=== PATIENT | male | born 1950 | race Caucasian/White ===

== ENCOUNTER 2023-02-07 07:30 | Inpatient (IN) ==
[2023-01-29 14:14] LABS: Basophils # (Auto) 0.03 K/mcL (0.00-0.30); Basophils % (Auto) 0.6 % (0.0-2.0); Eosinophils # (Auto) 0.15 K/mcL (0.00-0.70); Eosinophils % (Auto) 2.8 % (0.0-7.0); Hematocrit 42.2 % (40.1-51.0); Hemoglobin 13.9 g/dL (13.7-17.5); Lymphocytes # (Auto) 1.28 K/mcL (1.50-4.80); Lymphocytes % (Auto) 23.5 % (15.5-49.0); Mean Cell Volume 88.3 fL (80.0-100.0); Mean Corpuscular HGB Conc 32.9 g/dL (31.0-36.0); Mean Platelet Volume 10.4 fL (8.8-12.5); Monocytes # (Auto) 0.51 K/mcL (0.10-0.90); Monocytes % (Auto) 9.4 % (1.0-12.0); Platelet Count 207 K/mcL (140-440); RBC 4.78 M/mcL (4.63-6.08); Red Cell Distribution Width 13.7 % (11.5-14.5); WBC 5.4 K/mcL (4.5-11.0)
[2023-01-29 14:24] LABS: Estimated Average Glucose(eAG) 100 mg/dL; Hemoglobin A1C 5.1 % Hgb (4.0-6.0)
[2023-01-29 16:54] LABS: Appearance,Urine HAZY (Clear); Bilirubin,Urine Negative (Negative); Color,Urine YELLOW; Culture Indicated,Urine No; Glucose,Urine (UA) Negative (Negative); Ketones,Urine Negative (Negative); Leukocyte Esterase,Urine Negative /uL (Negative); Nitrate,Urine Negative (Negative); Protein,Urine Negative (Negative); Specific Gravity,Urine 1.015 (1.000-1.035); Urine Blood Negative (Negative); Urobilinogen,Urine Negative
[2023-01-29 17:02] LABS: ALT/SGPT 12 U/L (<40); AST/SGOT 22 U/L (<40); Albumin 4.5 gm/dL (3.2-5.2); Albumin/Globulin Ratio 1.7 (1.0-2.3); Alkaline Phosphatase 81 U/L (39-117); Blood Urea Nitrogen 12 mg/dL (8-23); Calcium 9.6 mg/dL (8.6-10.4); Carbon Dioxide 26 mmol/L (22-30); Chloride 103 mmol/L (96-108); Globulin 2.6 gm/dL (2.2-3.7); Glomerular Filtration Rate 88; Glucose 92 mg/dL (70-105)
--- NOTE | 2023-01-30 07:01 | EKG ---
[facility] Test Date: 2023-01-29 Pat Name: Cuauhtemoc Hernandez Department: [facility] Room: Gender: Male Hotel Assistant General Manager: : 1950 Requested By: Norman Nguyễn Order Number: [id number] Reading MD: Pepe Loya M.D. Measurements Intervals [place] Rate: 54 P: -2 OH: 166 QRS: 8 QRSD: 91 T: 26 QT: 425 QTc: 402 Interpretive Statements Sinus rhythm Abnormal R-wave progression, early transition Electronically Signed On 01-30-2023 7:00:55 PDT by Pepe Loya M.D. /store/[email or web address]/[id number]
[~2023-02-07 07:30] MED LIST: 0.9 % SODIUM CHLORIDE 9 ML, KETOROLAC 30 MG, ROPIVACAINE HCL/PF 49.5 ML, EPINEPHrine 0.... IJ SCH; CELECOXIB 200 MG CAPSULE PO SCH; PREGABALIN 75 MG CAPSULE PO SCH; ceFAZolin 2 GM in DEXTROSE 5% IN WATER 50 ML IV SCH; oxyCODONE 10 MG TAB.ER.12H PO SCH
[2023-02-07] MEDS ORDERED: SCOPOLAMINE 1 PATCH PATCH TOPICAL PRN (09:30)
[2023-02-07] MEDS ORDERED: IPRATROPIUM/ALBUTEROL 3 ML AMPUL.NEB NEB PRN ×2 (09:30→13:11)
[2023-02-07] MEDS ORDERED: ROPIVACAINE HCL/PF 20 ML VIAL IJ ONE (12:24)
[2023-02-07] MEDS ORDERED: TRANEXAMIC ACID 1,000 MG/10 ML VIAL ONE (12:24)
[2023-02-07] MEDS ORDERED: PROPOFOL 1,000 MG/100 ML BOTTLE IV ONE (12:24)
[2023-02-07] MEDS ORDERED: PROPOFOL 200 MG/20 ML VIAL IV ONE (12:24)
[2023-02-07] MEDS ORDERED: DEXAMETHASONE 10 MG/ML VIAL ONE (12:24)
[2023-02-07] MEDS ORDERED: ONDANSETRON 4 MG/2 ML VIAL IV PRN ×2 (13:11→15:12)
[2023-02-07] MEDS ORDERED: fentaNYL 100 MCG/2 ML VIAL IV PRN (13:11)
[2023-02-07] MEDS ORDERED: NALOXONE HCL 0.4 MG/ML VIAL IV PRN (13:11)
[2023-02-07] MEDS ORDERED: ACETAMINOPHEN 1,000 MG/100 ML BAG IV ONE (13:11)
[2023-02-07] MEDS ORDERED: BISACODYL 10 MG SUPP.RECT PR PRN (15:12)
[2023-02-07] MEDS ORDERED: HYDROmorphone 1 MG/ML SYRINGE IV PRN (15:12)
[2023-02-07] MEDS ORDERED: BENZOCAINE/MENTHOL 1 LOZENGE PO PRN (15:12)
[2023-02-07] MEDS ORDERED: HYDROcodone/APAP 10/325MG TABLET PO PRN (15:12)
[2023-02-07] MEDS ORDERED: FLEETS ADULT ENEMA PR PRN (15:12)
[2023-02-07] MEDS ORDERED: TRANEXAMIC ACID 1,000 MG/10 ML VIAL IV ONE (15:12)
[2023-02-07] MEDS ORDERED: POLYETHYLENE GLYCOL 3350 17 GM PACKET PO PRN (15:12)
[2023-02-07] MEDS ORDERED: MAGNESIUM HYDROXIDE 30 ML ORAL.SUSP PO PRN (15:12)
--- NOTE | 2023-02-07 15:12 | Brief Operative Note ---
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
[2023-02-07] MEDS: 0.9 % SODIUM CHLORIDE 1,000 ML IV SCH ×2 (15:49→23:54)
--- NOTE | 2023-02-07 16:13 | XRay Report ---
CLINICAL INFORMATION: Post-op total knee COMPARISON: None. FINDINGS: Longstem total knee prostheses is anatomically aligned. No osseous abnormality. Large effusion present tibiofemoral and patellofemoral joints with gas. IMPRESSION: Longstem total knee prosthesis in anatomic alignment Interpreted and Authenticated by: Pepe Estrella 02/07/23
[2023-02-07] MEDS: KETOROLAC 30 MG/ML VIAL IV SCH ×2 (17:39→23:49)
[2023-02-07] MEDS: ceFAZolin 1 GM VIAL IV SCH (20:28)
[2023-02-07] MEDS: 0.9 % SODIUM CHLORIDE 10 ML SYRINGE IV SCH (20:29)
[2023-02-07] MEDS: ASPIRIN 325 MG ENTERIC COATED TABLET PO SCH (20:29)
[2023-02-07] MEDS: DOCUSATE SODIUM 100 MG CAPSULE PO SCH (20:29)
[2023-02-07] MEDS ORDERED: SENNOSIDES 1 TABLET PO SCH (21:00)
--- NOTE | 2023-02-07 21:48 | Discharge Summary ---
Discharge Provider Provider IMPORTANT FOLLOW-UP INFORMATION FOR PCP: Patient information: Note initiated : 02/07/23 at 9:46 pm Service Date, if different from initiated Date: [] Patient: Delfin Hernandez 72 y/o M admitted on 02/07/23 for Left MAGEN Total Knee Arthroplasty Revision. Chief Complaint: [] Date of admission: 02/07/23 09:32 Discharge date: 02/08/23 Primary care physician: Yves Garibay MD COURSE Hospital Course Hospital course: Pt was admitted for a L revision TKA. Pt discharged to home post-op day 1. ASA for DVT prophylaxis. f/u 2 weeks. Discharge diagnosis: Aseptic loosing L TKA Time Spent with Patient Time attestation: Total time spent providing and/or coordinating discharge services: Time spent: Less than 30 minutes Physical Examination Narrative Exam Narrative: Bandages C/D/I nvi-distal Exam Clean and dry: Yes Weight bearing status: as tolerated Discharge Instructions - TKA Patient Instructions Total Knee Protocol: For Total Knee: Start ROM SOURAV with stationary bike or rocking chair. Work on gaining full ex tension of knee. Posterior dislocation precautions provided. Hip abductor strengthening and gait training instructions provided. Apply Cryocuff as instructed. Dressing Care: May shower in 2 days Discharge Plan Patient/Caregiver Discharge Instructions Activity: increase activity as tolerated Diet: Regular Diet Prescriptions: New acetaminophen [Acetaminophen Pain Relief] 500 mg tablet 1,000 mg PO TID Qty: 90 0RF aspirin 81 mg tablet,delayed release (DR/EC) 81 mg PO BID Qty: 30 0RF meloxicam 7.5 mg tablet 7.5 mg PO QDAY Qty: 30 0RF oxycodone 5 mg tablet 5 mg PO Q6H PRN (Reason: pain) Qty: 30 0RF Continued Centrum Silver Men 300-600-300 mcg Tablet 1 tab PO QDAY Discontinued ibuprofen 600 mg Tablet 600 mg PO DAILY Other Ambulatory Orders: Physical Therapy at Discharge - TKA (Routine) Location: None Selected Ordered By: Adam Coburn (ONCE) Location: None Selected Ordered By: Adam Nye Follow Up Plan Follow up with: Norman Lin MD [Physician] - 02/22/23 9:20 am Adam Nye, PATerezaC [Physician Marine Operations Coordinator] - Patient Disposition: Home, Self-Care Rehab Potential: Good Overall status at discharge: patient is progressing back to baseline Discharge Orders: Discharge Order (Routine); Ordered 02/08/23 Ordered By: Adam Nye Pending Pending Pending: Resuscitation Status Resuscitate (Full Code) Diet Regular Diet Start SunFeb 07 151 Aspirin (Aspirin 325 Mg Enteric Coated Tablet) 325 mg PO BID [facility] Last Admin: 02/07/23 20:29 Dose: 325 mg Documented By: MARGIE Cefazolin Sodium (Cefazolin 1 Gm Vial) 2 gm IV Q8H [facility]; Protocol Stop: 02/08/23 04:01 Last Admin: 02/07/23 20:28 Dose: 2 gm Documented By: MARGIE Docusate Sodium (Docusate Sodium 100 Mg Capsule) 100 mg PO BID [facility] Last Admin: 02/07/23 20:29 Dose: Not Given Documented By: MARGIE Sodium Chloride (Sodium Chloride 0.9%) 1,000 mls @ 125 mls/hr IV .Q8H [facility] Last Admin: 02/07/23 15:49 Dose: 125 mls/hr Documented By: [email or web address] Ketorolac Tromethamine (Ketorolac 30 Mg/Ml Vial) 30 mg IV Q6 [facility] Stop: 02/09/23 12:01 Last Admin: 02/07/23 17:39 Dose: 30 mg Documented By: ITZ Senna (Sennosides 1 Tablet) 2 tab PO HS [facility] Last Admin: 02/07/23 20:29 Dose: Not Given Documented By: MARGIE Sodium Chloride (0.9 % Sodium Chloride 10 Ml Syringe) 10 ml IV Q8 [facility] Last Admin: 02/07/23 20:29 Dose: Not Given Documented By: MARGIE
[2023-02-08] MEDS: ceFAZolin 1 GM VIAL IV SCH (04:39)
[2023-02-08] MEDS: 0.9 % SODIUM CHLORIDE 10 ML SYRINGE IV SCH (05:21)
[2023-02-08] MEDS: KETOROLAC 30 MG/ML VIAL IV SCH (05:37)
[2023-02-08] MEDS: 0.9 % SODIUM CHLORIDE 1,000 ML IV SCH (06:54)
--- NOTE | 2023-02-08 07:42 | Operative Note ---
DATE OF OPERATION: 02/07/2023 DATE OF PROCEDURE: 02/07/2023 PREOPERATIVE DIAGNOSIS: Failed left total knee arthroplasty. POSTOPERATIVE DIAGNOSIS: Failed left total knee arthroplasty. PROCEDURE PERFORMED: Left total knee arthroplasty revision of femoral and tibial components, placing a Centenary size 5 femoral component with a 16 x 100 mm stem; a size 5 tibial component with a 12 x 100 mm stem as well as an asymmetric size C cone augment and a 13 mm total stabilized tibial insert. SURGEON: Norman Lin M.D. SPRAY MIXER: Adam Nye M.D. ANESTHESIA: Spinal. DRAINS: None. SPECIMEN: Culture and sensitivity x2 as well as removed femoral, tibial, and tibial insert components, which were discarded. ESTIMATED BLOOD LOSS: 50 mL. COMPLICATIONS: None. POSTOPERATIVE CONDITION: Stable. INDICATIONS FOR SURGERY: This is a 72-year-old male who approximately 6 years ago underwent a total knee arthroplasty by another surgeon. He had done well initially, but then several years in he started having pain. He initially saw me in consultation 2 years ago, at which point we x-rayed the knee and it appeared the femoral component had radiolucent lines. We did an infection workup, which was negative at that time, and I had recommended revision total knee arthroplasty, but he was having symptoms that were improving some, so he elected not to proceed with treatment. He then showed up 2 years later, now about 2 months ago complaining of worsening pain. X-rays were taken again, which showed more severe evidence of loosening around the femoral component. We did a repeat infection workup including erythrocyte sedimentation rate and C-reactive protein, which were normal. We also aspirated the knee and sent off for bacterial DNA analysis and culture, which was negative. FINDINGS AT SURGERY: The femoral component was completely loose and was unable to be removed just by my hand. There was extensive synovitis and discoloration of the synovium, which appeared to be from hemosiderin deposits. There was a bloody effusion. There was also significant cement, debris and synovitis. There is also severe laxity and instability. Post implantation showed overall good limb alignment with reasonable patellar tracking and dramatically improved joint stability. PROCEDURE IN DETAIL: The patient had been seen preoperatively and informed consent had been obtained after discussion of risks and benefits of surgery. Risks including, but not limited to, bleeding; infection, this being increased risk given the revision surgery, possibly requiring implant removal and prolonged IV antibiotics, possibly ultimately resulting in an above-knee amputation, injury to nerves, blood vessels, other surrounding structures, anesthetic risks; incomplete or no resolution of symptoms; stiffness; pain; weakness; instability; DVT and pulmonary embolus risks; and the possibility of needing further surgeries. He understood these risks and wished to proceed. The correct operative site was marked in the preoperative holding, and then patient received spinal anesthesia. He was then taken to the operating room and carefully positioned on the operating table. The left lower extremity was carefully prepped and draped in normal sterile fashion. Timeout was performed verifying patient name, operative site, and plan. Ioban was used to cover all skin surfaces and an Esmarch was used to exsanguinate the extremity, and tourniquet was inflated to 300 mmHg. He had a previous medial based incision, which we used and proximally extended angling more towards the midline with a scalpel through skin and subcutaneous tissue. IrriSept was irrigated. A medial parapatellar arthrotomy was made and a blood-tinged hemarthrosis was identified. We cultured this x2 with culture swabs from the joint. A subperiosteal exposure was then done of the anterior medial proximal tibia and we then excised scar tissue from behind the patellar tendon. The patella appeared well fixed. We subluxed this laterally and then flexed the knee up. The polyethylene insert was then removed with an osteotome. There was extensive synovitis with discoloration, brown-tinged, consistent with hemosiderin deposits. There was also a granular green particles that appeared to be cement particles. We then performed an aggressive synovectomy of the suprapatellar pouch and medial and lateral gutters. Once this was completed, I turned my attention to the femoral component and upon investigation, it was grossly loose and I was able to just grab it with my hand and remove it. There was erosion underneath it as well as cement particles, which we removed. Once we cleaned up the end of the femur with a curette, we then turned our attention to the tibia. This was well fixed and was not loose. I started working around the bone implant interface with a flexible osteotome, I was able to do this well anterior to the flange however, I could not get posteriorly with flexible osteotome, so I just used a fishMumartuth impactor and mallet and dislodged this from the femur; however, it appeared to take the posterior medial quadrant of the proximal tibial metaphysis off with the tibial component. There was still some soft tissue attached, so I used a Bovie to release the soft tissue bone interface and then was able to remove the tibial baseplate. This left us a fairly large posterior medial defect uncontained on the proximal tibia. I was able to still palpate the medial collateral ligament, so we felt that the insertion was still intact. There was a fairly big cement plug distally, so we used a drill to get through this and make several holes and then used the osteotome to impact it and then allowed me to remove the cement and fragments. We then started reaming the canal and reamed up to a size 12, which hung up at about 175 mm. We then used the cutting jig over the zully and using an Haseeb Wing placed this on the resected surface and then made a proximal tibial cut 2 mm below this. There was essentially just an anterior medial shell of bone and laterally a hemispherical shell of bone, which was cut with saw. We noted that the femoral canal was much more medial to the midline on the tibia. We sized this to a 5, but needed the full 8 mm offset. We removed the baseplate lateral. We then did our boss reamer and keel punch. I did try to externally rotate as bone coverage would allow. However, due to the canal being more medial I could not externally rotate too much without the implant coming off significantly anteriorly. Based off of our defect we felt we needed a cone and showed the asymmetric cone to fill that medial defect. We reamed for the central portion of the cone down to the marking on the cone and then used the corresponding reamer guide to ream the asymmetrical portion. We then placed our trial cone along with placing our trial tibial implants. However, the 8 mm offset would not fit through the cone. We also found that the 6 mm offset would not fit through the colon so we had to downsize offset to a 4 before it finally fit through the cone. This did leave us overhanging some medially; however, we did not feel comfortable downsizing to a 4, which would have not gotten good cortical bone purchase around the rest of the tibia. We then turned our attention to the femur at this point. A drill hole was made in the end to enter the canal and then I began sequentially reaming again to 175 mm, reaming up to a size 16. We then removed the reamer and placed a 16 stem on the window size 6 guide. We felt this was clearly too large, so I downsized to a 5. This seemed to fit much better. However, we still were sitting off the anterior cortex significantly, so we did choose a 4 mm offset directly posterior, which then brought the anterior flange much closer. With the guide, we felt our epicondyles and then placed the lines at the epicondyles and pinned this into place. This revealed a large distal defect and required us to use a 15 mm wedges to meet our distal femoral bone. I used the saw through the distal window at the 15 mm estefani and we just removed a sliver of bone off of both sides. We then checked our posterior windows and we needed to use the saw through the 5 mm augment window to contact a sliver of bone posteriorly. We then trialed an insert, and it took a 16 to get us even close to out of the hyperextension. Based off this, we chose then to add a 5 mm augment to the tibia medial and lateral to decrease our poly size. At this point, we felt like this was sabianism of joint line and had reasonable stability, so we started opening implants. Of note, I did irrigate IrriSept into the joint after entering the joint after cultures were taken. At this point then, while implants were being assembled, I had a 50% Betadine solution that I filled the joint with meanwhile on the back table. Implants were assembled with the 15 mm augment on the distal femur, medial and lateral and 5 mm augments posterior medial and lateral on a size 5 femur with a 16 x 100 mm stem. The tibia was also assembled. We, meanwhile, placed the asymmetric cone. After first pulse lavaging with saline. The tibial component was assembled with a 5 baseplate and a 12 x 100 mm stem with a 5 mm augment wedges on both medial and lateral. Once we verified our offset in the correct positions and the implants were ready, we then mixed Palacos with gentamicin cement. Starting with the tibia, we placed the implant in until the stem was passed the cone and then I used a cement gun to fill the cone with cement. We had also placed cement on the underside of the tibia component. We then impacted this and excess cement was removed. We then went to the femur, again pulse lavaging. We used the CO2 gun and then placed cement on the distal femur and on the inside of the implant avoiding around the stem and then this was impacted. Excess cement was removed. We then placed an 11 mm insert trial. The knee was then taken into extension and placed on a bump. We then filled the joint with the 50% Betadine solution again and then injected pain cocktail into the pericapsular and subcutaneous tissues. I made sure that I waited long enough that all cement pieces were rock hard before I flexed the knee up. I felt that we could improve stability even a little better, so I chose to open a 13 mm insert. The 11 trial was removed. I injected pain cocktail in the posterior capsule. IrriSept was irrigated and then after a minute pulse lavaged with saline, and then I impacted the insert into place and then the metal post support was impacted down the top. We then pulse lavaged copiously with saline again and we then checked our patellar tracking. It was reasonable, so we went ahead and placed the knee in about 45 degrees of flexion. Towel clamps were used to reduce the patella and then #2 FiberWire [id number] were used around the superior quadrant of the patella and then a single [id number] at the inferior apex. We then used a Stratafix for running patellar tendon and then running quad tendon closures. During this time, we reached the 120 minute estefani on the tourniquet. I went ahead and had anesthesia add 10 more minutes. We continued the deep closure. IrriSept was irrigated again, after a minute pulse lavaged with saline, and then some deep fat was closed with the #1 Vicryl and then 2-0 Monocryl was used for subcutaneous closure. At the 10-minute estefani, the tourniquet was released. Leo were used for skin. A silver dressing was applied. Tourniquet was released. The patient was then awakened, extubated, and transferred to recovery in stable condition. [id number]:zach Job ID: [id number] Doc ID: [id number] Norman Lin MD
[2023-02-08] MEDS: ASPIRIN 325 MG ENTERIC COATED TABLET PO SCH (08:53)
[2023-02-08] MEDS: DOCUSATE SODIUM 100 MG CAPSULE PO SCH (08:53)
[2023-02-08] MEDS ORDERED: MULTIVIT,THER IRON,CA,FA & MIN 1 TABLET PO SCH (09:00)
== END 2023-02-08 11:27 | disposition home or self-care (01) | DRG 468 ==
LOC: MEDSUR 09:32
PROVIDERS: ADMIT Orthopaedic Surgery; ATTEND Physician Assistant Surgical